=== PATIENT | male | born 1985 | race Caucasian/White ===

== ENCOUNTER 2019-01-01 10:51 | Emergency (ER) | payer OTHER ==
[2019-01-01] MEDS: DIPHTH/TET/ACEL PERTUSS (ADULT) 0.5 ML VIAL IM* (11:25)
[2019-01-01] MEDS: HYDROCODONE/APAP (5/325) TAB PO (11:25)
[2019-01-01] MEDS: LIDOCAINE 1% (MPF) 5 ML VIAL INJ (11:26)
[2019-01-01] MEDS: CEFAZOLIN 1 GM INJ IM (11:56)
[2019-01-01] MEDS: LIDOCAINE 1% (MDV) 20 ML INJ SC (11:57)
[2019-01-01] MEDS: KETOROLAC 60 MG INJ IM (14:32)
== END 2019-01-01 14:46 | disposition home or self-care (01) ==
LOC: FTE 10:51
DX: S62.521A Displaced fracture of distal phalanx of right thumb, initial encounter for closed fracture (principal); S62.624A Displaced fracture of middle phalanx of right ring finger, initial encounter for closed fracture; W26.8XXA Contact with other sharp object(s), not elsewhere classified, initial encounter; Y92.9 Unspecified place or not applicable; Z23 Encounter for immunization
CPT/HCPCS: 12005; 73140; 90471; 90715; 96372; 99284-25

== ENCOUNTER 2019-01-03 08:40 | Emergency (ER) | payer OTHER | END 2019-01-03 10:19 | disposition home or self-care (01) | LOC: FTE 08:40 | DX: Z48.01 Encounter for change or removal of surgical wound dressing (principal) | CPT/HCPCS: 99281; Z7502 ==